=== PATIENT | female | born 1950 | race Caucasian/White ===

== ENCOUNTER 2024-01-24 07:07 | Emergency (ER) | payer MEDICARE ==
--- NOTE | 2024-01-24 08:07 | ED Physician Documentation ---
History of Present Illness - Stated complaint Stated Complaint: LT CHEEK PX - Chief complaint Chief Complaint: Trauma Hd/Nk - History obtained from History obtained from: Patient, Family - Additonal information Additional information: The patient comes to the emergency department chief complaint of dental pain. She states she has had poor dentition for a while, and last saw her dentist couple of years ago, after COVID. She has not been very pleased with her dentist and has wanted to switch to a different one, but states the work she wants done is too expensive. She has 4 Left mandibular teeth that are decayed to the gingiva and she has been having problems on and off. Yesterday, she began to notice swelling and pain in her left mandible. No fevers. She denies any swelling of her tongue or throat. She is speaking and swallowing okay. The patient denies any other complaints at this time. PD PAST MEDICAL HISTORY - Present Medications Home Medications: Ambulatory Orders Medication Instructions Recorded Confirmed Chlorhexidine Gluconate 10 ml TP TID PRN #240 ml 01/24/24 [Bactoshield Chg] HYDROcod/ACETAM 5/325 [[place] 5/325] 1 - 2 tablet PO Q6H PRN #14 tablet 01/24/24 clindamycin HCL [Clindamycin HCl] 300 mg PO Q8HR #21 cap 01/24/24 - Allergies Allergies/Adverse Reactions: Allergies Allergy/AdvReac Type Severity Reaction Status Date / Time Penicillins Allergy Rash Verified 01/24/24 07:29 - Social History Does the pt smoke?: No Smoking Status: Never smoker Does the pt have substance abuse?: No - Immunizations Immunizations are current?: Yes PD ED PE NORMAL - Vitals Vital signs reviewed: Yes - General General: Alert and oriented X 3, No acute distress, Well developed/nourished - HEENT HEENT: Atraumatic, EOMI, Moist mucous membranes, Other (Severely decayed first and second L mandibular molars as well as the 2 teeth immediately preceeding. Mild edema of the gingiva with tenderness. No distinct fluctuant collection. No tenderness of the floor of the mouth. No cheek edema, induration, or fluctuance. No mass.) - Cardiac Cardiac: RRR, No murmur - Respiratory Respiratory: Clear bilaterally - Abdomen Abdomen: Normal bowel sounds, Soft, Non tender, Non distended - Derm Derm: Warm and dry - Extremities Extremities: No deformity - Neuro Neuro: Alert and oriented X 3 - Psych Psych: Normal mood, Normal affect Results - Vitals Vitals: Vital Signs - 24 hr 01/24/24 01/24/24 07:24 08:35 Temperature 36.5 C 36.5 C Heart Rate 61 57 L Respiratory 17 14 Rate Blood Pressure 159/86 H 156/68 H O2 Saturation 98 96 Oxygen O2 Source Room air PD Medical Decision Making - ED course Complexity details: considered differential, d/w patient ED course: The patient was given a dose of clindamycin in the emergency department and prescribed the same as an outpatient. I have encouraged her to follow-up with a dentist for definitive care as soon as possible. W have discussed the usual indications for return. Departure - Departure Disposition: Home, Self Care Clinical Impression: Dental infection Condition: Stable Instructions: ED Abscess Dental Prescriptions: clindamycin HCL [Clindamycin HCl] 300 mg PO Q8HR #21 cap Chlorhexidine Gluconate [Bactoshield Chg] 10 ml TP TID PRN #240 ml PRN Reason: Mouth Sore Pain HYDROcod/ACETAM 5/325 [[place] 5/325] 1 - 2 tablet PO Q6H PRN #14 tablet PRN Reason: Pain Comments: You have been started on antibiotics in the emergency department today. A prescription for the same plus pain medication has been electronically transmitted to the [facility] in [place]. Is important that you take all of your doses of antibiotics, as directed, until the course is complete. Please call your dentist to make the next available appointment to discuss definitive care of your teeth. Forms: PCP List
[2024-01-24] MEDS: CLINDAMYCIN 150 MG CAPSULE PO STA (08:10)
[2024-01-24 08:40] VITALS: BP 156/68; O2SAT 96
--- NOTE | 2024-01-24 18:36 | ED Physician Documentation ---
ED Addendum - Addendum Addendum: 01/24/24 18:36 The patient was meant to receive a prescription for Peridex, accidentally was written for topical chlorhexidine. I changed the prescription to Peridex. Paper prescription given to patient per her request. Departure - Departure Disposition: 01 Home, Self Care Clinical Impression: Dental infection Condition: Stable Instructions: ED Abscess Dental Prescriptions: clindamycin HCL [Clindamycin HCl] 300 mg PO Q8HR #21 cap HYDROcod/ACETAM 5/325 [[place] 5/325] 1 - 2 tablet PO Q6H PRN #14 tablet PRN Reason: Pain Chlorhexidine Gluconate [Peridex] 15 ml MM BID #118 ml Comments: You have been started on antibiotics in the emergency department today. A prescription for the same plus pain medication has been electronically transmitted to the [facility] pharmacy in [place]. Is important that you take all of your doses of antibiotics, as directed, until the course is complete. Please call your dentist to make the next available appointment to discuss definitive care of your teeth. Forms: PCP List Discharge Date/Time: 01/24/24 08:41
== END 2024-01-24 08:41 | disposition home or self-care (01) ==
LOC: ED 07:07
DX: K04.7 Periapical abscess without sinus (principal); K02.9 Dental caries, unspecified
CPT/HCPCS: 99283; A9270